=== PATIENT | male | born 1995 | race Caucasian/White ===

== ENCOUNTER 2022-11-04 00:16 | Emergency (ER) | payer SELFPAY ==
[2022-11-04 00:33] VITALS: BP 132/71; PULSE 67; RESP 18; TEMP 36.8; O2SAT 100
--- NOTE | 2022-11-04 01:23 | ED.SKABFB ---
HPI - Skin/Abscess/Foreign Bdy General Chief complaint: Skin/Abscess/Foreign Body Stated complaint: FB eye Time Seen by Provider: 11/04/22 01:02 History of Present Illness HPI narrative: Patient is a 27-year-old male who presents ER with concern for foreign body right eye. He is working at a construction site site and feels like some metal fell into his eye while he was wearing his safety glasses. He was not grinding. He has some irritation to his eye and some redness and puffiness. He is tearing. No change in vision. Related Data Allergies Allergy/AdvReac Type Severity Reaction Status Date / Time No Known Allergies Allergy Verified 11/04/22 01:12 Review of Systems Eyes: Eyes: Denies change in vision and Reports photophobia Comments: Eye redness and irritation. ENT: Denies nasal congestion and Denies sore throat PMFSH Past Medical History Medical History (Updated 11/04/22 @ 01:29 by Juan Denny MD) Healthy adult male Surgical History Surgical History (Updated 11/04/22 @ 01:29 by Juan Denny MD) History of hernia surgery Exam Narrative: GENERAL: Well-appearing, well-nourished, and in no acute distress. HEAD: Normocephalic, atraumatic. EYES: PERRLA and EOMI. right eye with corneal foreign body at the 2 o'clock position that appears to be metal. The eye was viewed with magnification, fluorescein staining, and tetracaine was used. No additional corneal abrasion or retained foreign body. After removal of foreign body small corneal abrasion noted and no rust ring noted. ENT: Mucous membranes moist. NEURO: Alert and oriented x3. PSYCH: Normal mood and affect. Course Course Emergency Course: Discussed treatment and patient verbalized understanding. Discharge home. Vital Signs Vital signs: Vital Signs Temperature 98.3 F 11/04/22 00:33 Pulse Rate 67 11/04/22 00:33 Respiratory Rate 18 11/04/22 00:33 Blood Pressure 132/71 11/04/22 00:33 Pulse Oximetry 100 11/04/22 00:33 Oxygen Delivery Room Air 11/04/22 00:33 Temperature 98.3 F 11/04/22 00:33 Pulse Rate 67 11/04/22 00:33 Respiratory Rate 18 11/04/22 00:33 Blood Pressure 132/71 11/04/22 00:33 Pulse Oximetry 100 11/04/22 00:33 Oxygen Delivery Room Air 11/04/22 00:33 Procedures FB Removal Eye Foreign Body #1: Foreign Body Removal Date: 11/04/22 Foreign Body Removal Time: 01:20 Time Out performed: No Location: eye (R) Topical anesthetic used: tetracaine Foreign body: metal and wood Evidence of corneal penetration: No Technique: syringe Procedure performed under: slit-lamp Post-procedure medication: ophthalmic antibiotic and topical anesthetic Patient tolerated procedure: well Discharge Plan Discharge Clinical Impression: Eye foreign body, Abrasion, corneal Patient Disposition: Home, Self-Care Condition: Stable Instructions: Antibiotic Form, Corneal Abrasion (ED) Additional Instructions: You are being prescribed antibiotics to prevent secondary infection GI. Foreign body was removed and left a scratch of your cornea. Follow-up with your eye doctor for further treatment evaluation. Return the ER if you have thick pus draining from your eye, you cannot see, you have additional concerns. Prescriptions: New erythromycin 5 mg/gram (0.5 %) ointment 0.5 inch EACH EYE QID Qty: 3.5 0RF Follow-up/Referrals: PHYSICIAN NOT ON STAFF,NONSTAFF [Primary Care Provider] - 1 Week
[2022-11-04] MEDS: ERYTHROMYCIN OPHTH OINTMENT 1 GM TUBE 1 APPLIC EACH EYE (01:26)
== END 2022-11-04 01:45 | disposition home or self-care (01) ==
LOC: ANHED 01:37
PROVIDERS: Emergency Provider Emergency Medicine
DX: T15.01XA Foreign body in cornea, right eye, initial encounter (principal); W45.8XXA Other foreign body or object entering through skin, initial encounter; Y99.0 Civilian activity done for income or pay
CPT/HCPCS: 99283; A9270